=== PATIENT | female | born 1975 | race Caucasian/White ===

== ENCOUNTER 2022-07-21 21:47 | Emergency (ER) | payer SELFPAY ==
[~2022-07-21] VITALS: Ht 162.5 cm; Wt 86.8 kg
[2022-07-21] MEDS ORDERED: KETOROLAC 15 MG/ML VIAL IVP STA (22:14)
[2022-07-21] MEDS ORDERED: NS IV 1000 ML 1,000 ML IV STA (22:14)
[2022-07-21 22:21] LABS: BASOPHILS % (AUTO) 0 % (0-10); EOSINOPHILS # (AUTO) 0.1 10^3/uL (0.0-0.3); EOSINOPHILS % (AUTO) 2 % (0-10); HEMATOCRIT 31 % (35-52); LYMPHOCYTES % (AUTO) 13 % (12-44); MEAN CORPUSCULAR HEMOGLOBIN 26 pg (25-34); MEAN CORPUSCULAR HGB CONC 32 g/dL (32-36); MEAN CORPUSCULAR VOLUME 81 fL (80-99); MONOCYTES # (AUTO) 0.3 10^3/uL (0.0-1.0); MONOCYTES % (AUTO) 5 % (0-12); NEUTROPHILS # (AUTO) 5.7 10^3/uL (1.8-7.8); NEUTROPHILS % (AUTO) 80 % (42-75); PLATELET COUNT 270 10^3/uL (130-400); WHITE BLOOD COUNT 7.1 10^3/uL (4.3-11.0)
--- NOTE | 2022-07-21 22:29 | ED GU-Female ---
General Chief Complaint: - Reproductive Stated Complaint: ABNORMAL VAG BLEEDING,DIARRHEA,DIZZY Source: patient History of Present Illness Date Seen by Provider: Jul 21, 2022 Time Seen by Provider: 21:51 Initial Comments 47-year-old female presenting with complaints of dizziness and abnormal vaginal bleeding. She states that she had 3 months where she did not have a menstrual period at all. And starting July 04 she has had heavy vaginal bleeding that has persisted for 2 weeks. She has an appointment to see Dr. Goins at the [facility] clinic on August 03 but was concerned about the dizziness so she came in to be seen today. She denies any syncope or loss of consciousness. She has been having large clots that she is passing and going through several pads and/or tampons in a day. She does note that her mother went through menopause in her 40s and had heavy bleeding similar to this that required an ablation and then a hysterectomy. She has increased pelvic cramping that was not improved with Midol, Aleve, ibuprofen. Timing/Duration: constant (over 2 weeks of heavy bleeding) Severity/Quality: moderate, cramping Location: suprapubic Radiation: none Activities at Onset: none Prior Genitourinary Problems: none Sexual [place] History: less than 2 months ago, single partner Associated Symptoms: No diaphoresis, No dysuria, No fever/chills, No loss of bladder control, No lower back pain, No lumps, No mass, No nausea/vomiting, No nocturia, No polyuria, No swelling, No syncope, No urinary frequency Allergies and Home Medications Allergies Coded Allergies: No Known Drug Allergies (Unverified , 07/21/22) Patient Home Medication List Home Medication List Reviewed: Yes Medroxyprogesterone Acetate (Provera) 10 Mg Tablet, 10 MG PO DAILY Prescribed by: JAMILA HAJI on 07/21/22 9232 Review of Systems Review of Systems Constitutional: No chills; dizziness (with standing and walking sometimes); No fever EENTM: no symptoms reported Respiratory: no symptoms reported Cardiovascular: no symptoms reported Gastrointestinal: see HPI Genitourinary: see HPI : No LMP: Jul 04, 2022 Musculoskeletal: no symptoms reported Skin: no symptoms reported Psychiatric/Neurological: Anxiety Past Fgconsq-Kzwsae-Tlnhaw Hx Patient Social History Tobacco Use?: No Use of E-Cig and/or Vaping dev: No Substance use?: No Alcohol Use?: No Physical Exam Vital Signs Capillary Refill : Height, Weight, BMI Height: '" Weight: lbs. oz. 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 II-XII nml as tested, alert, oriented x 3 Skin: normal color, warm/dry Progress/Results/Core Measures Suspected Sepsis SIRS Temperature: Pulse: Respiratory Rate: Laboratory Tests 07/21/22 22:17: White Blood Count 7.1 Blood Pressure / Mean: Laboratory Tests 07/21/22 22:17: Platelet Count 270 Results/Orders Lab Results Laboratory Tests Test 07/21/22 22:17 07/21/22 22:18 Range/Units White Blood Count 7.1 4.3-11.0 10^3/uL Red Blood Count 3.81 3.80-5.11 10^6/uL Hemoglobin 10.0 L 11.5-16.0 g/dL Hematocrit 31 L 35-52 % Mean Corpuscular Volume 81 80-99 fL Mean Corpuscular Hemoglobin 26 25-34 pg Mean Corpuscular Hemoglobin Concent 32 32-36 g/dL Red Cell Distribution Width 15.4 H 10.0-14.5 % Platelet Count 270 130-400 10^3/uL Mean Platelet Volume 10.0 9.0-12.2 fL Immature Granulocyte % (Auto) 0 % Neutrophils (%) (Auto) 80 H 42-75 % Lymphocytes (%) (Auto) 13 12-44 % Monocytes (%) (Auto) 5 0-12 % Eosinophils (%) (Auto) 2 0-10 % Basophils (%) (Auto) 0 0-10 % Neutrophils # (Auto) 5.7 1.8-7.8 10^3/uL Lymphocytes # (Auto) 1.0 1.0-4.0 10^3/uL Monocytes # (Auto) 0.3 0.0-1.0 10^3/uL Eosinophils # (Auto) 0.1 0.0-0.3 10^3/uL Basophils # (Auto) 0.0 0.0-0.1 10^3/uL Immature Granulocyte # (Auto) 0.0 0.0-0.1 10^3/uL My Orders Orders - JAMILA HAJI MD Comprehensive Metabolic Panel (07/21/22 22:14) Ua Culture If Indicated (07/21/22 22:14) Ed Iv/Invasive Line Start (07/21/22 22:14) Cbc With Automated Diff (07/21/22 22:14) Ct Abdomen/Pelvis W (07/21/22 22:14) Protime With Inr (07/21/22 22:14) Partial Thromboplastin Time (07/21/22 22:14) Hcg,Quantitative (07/21/22 22:14) Ns Iv 1000 Ml (Sodium Chloride 0.9%) (07/21/22 22:14) Ketorolac Injection (Toradol Injection) (07/21/22 22:14) Vital Signs/I&O Capillary Refill : Progress Note #1: Progress Note Potential life-threatening conditions of ectopic , uterine mass, ovarian cancer, uterine cancer, uterine fibroids, coagulopathy. Obtain IV access and check complete blood count, comprehensive metabolic profile, clotting factors, quantitative beta-hCG. Order urinalysis to look for signs of infection. CT scan of the abdomen and pelvis looking for uterine or ovarian mass or tumor that might be causing her to have the heavy bleeding. Administer normal saline 1 L IV fluid bolus for feeling dizzy and lightheaded with standing and moving. Toradol 30 mg IV to help with pelvic cramping pain. Progress Note #2: Progress Note Her complete blood count shows normal white blood cell count of 7.1. She does have some mild anemia with a hemoglobin of 10 but I do not have any prior labs to compare with and she does not know what her hemoglobin usually runs. CMP did not show any acute electrolyte imbalance to contribute to her heavy bleeding and pelvic cramping. CT scan on my personal interpretation and review showed slightly enlarged uterus but no definite mass or tumor. No significant lymphadenopathy in the pelvis. Quantitative hCG is less than 5. This would be equivalent to 0 and goes with he r not having an ectopic or tubal . Progress Note #3: Progress Note I have reviewed the radiologist report at 2347. Radi[address] Anthony Pino MD had read her CT scan of the abdomen pelvis with IV contrast showing uterus and adnexa demonstrate no significant abnormality. No definite endometrial fluid. Detailed evaluation of the uterus and adnexa somewhat limited. No definite evidence for significant thickening of the endometrial stripe. Probable follicular changes involving the right adnexa/ovary as detailed above. The clinical significance of this finding is indeterminate and this is presumed incidental. No free intrapelvic fluid. Advised patient of the findings and results. She does state that she feels better after getting the IV fluids here in the ED and is not as dizzy when she gets up to walk. She has been walking back and forth to the bathroom without difficulty. She was counseled on follow-up with gynecology and primary care. Given the phone number for Dr. HOOD with gynecology. Encouraged patient to call tomorrow during the day to check with the clinics about possible outpatient ultrasound or having her be seen sooner than August 03. Prescription for Provera 10 mg p.o. daily x10 days. This would be to help with stabilizing her lining of the uterus to slow and then stop the heavy vaginal bleeding. Stressed importance of follow-up with the clinic for additional testing and evaluation beyond what is available in the stand-alone ED here in [place]. Diagnostic Imaging Diagonstic Imaging: CT Plain Films/CT/US/NM/MRI: abdomen, pelvis Comments I have reviewed the radiologist report at 2347. Rad[address] Anthony Pino MD had read her CT scan of the abdomen pelvis with IV contrast showing uterus and adnexa demonstrate no significant abnormality. No definite endometrial fluid. Detailed evaluation of the uterus and adnexa somewhat limited. No definite evidence for significant thickening of the endometrial stripe. Probable follicular changes involving the right adnexa/ovary as detailed above. The clinical significance of this finding is indeterminate and this is presumed incidental. No free intrapelvic fluid. Reviewed: [facility] Reviewed by Me Departure Impression Primary Impression: Menorrhagia Qualified Codes: N92.1 - Excessive and frequent menstruation with irregular cycle Additional Impression: Anemia Qualified Codes: D64.9 - Anemia, unspecified Disposition: 01 HOME, SELF-CARE Condition: Improved Departure-Patient Inst. Decision time for Depature: 23:51 Referrals: DARIO HOOD DO [facility] Patient Instructions: Heavy Periods ED, Anemia, Possibly From Low Iron, Adult ED Add. Discharge Instructions: I encourage you to restart your vitamins with iron to help with anemia and your recent blood loss. Take the Provera medication every day for the next 10 days to help with getting the bleeding stopped. Call the gynecology office for Dr. HOOD about follow-up as well as you could check with Dr. Goins. Either of them they want to see you sooner than 2 weeks as well as they may be able to order an outpatient pelvic ultrasound to further evaluate your heavy bleeding. May continue with aspi-awc-yhxbtva acetaminophen, naproxen or Aleve, ibuprofen or Advil and Motrin to try and help with pain. All discharge instructions reviewed with patient and/or family. Voiced understfabian garcia. Scripts Medroxyprogesterone Acetate (Provera) 10 Mg Tablet 10 MG PO DAILY for Heavy Bleeding for 10 Days, #10 TAB 0 Refills Prov: JAMILA HAJI MD 07/21/22 JAMILA HAJI MD Jul 21, 2022 22:29
[2022-07-21] MEDS ORDERED: MEDR10TA PO (23:17)
[2022-07-22 00:10] VITALS: BP 144/71
[2022-07-22] MEDS ORDERED: MEDR10TA PO (02:34)
[2022-07-22 04:23] LABS: SODIUM 135 MMOL/L (135-145)
[2022-07-22 04:24] LABS: ALANINE AMINOTRANSFERASE 19 U/L (0-55); ALKALINE PHOSPHATASE 87 U/L (40-136); BILIRUBIN,TOTAL 0.4 MG/DL (0.1-1.0); BUN/CREATININE RATIO 20; CALCIUM 8.7 MG/DL (8.5-10.1); CARBON DIOXIDE 23 MMOL/L (21-32); CHLORIDE 98 MMOL/L (98-107); CREATININE SERUM 0.66 MG/DL (0.60-1.30); GFR ESTIMATED 108; GLUCOSE 103 MG/DL (70-105); POTASSIUM 3.7 MMOL/L (3.6-5.0); TOTAL PROTEIN 7.5 GM/DL (6.4-8.2)
[2022-07-22 04:25] LABS: ALBUMIN 4.6 GM/DL (3.2-4.5)
[2022-07-22 04:29] LABS: INR 0.9 (0.8-1.4); PROTHROMBIN TIME PATIENT 12.9 SEC (12.2-14.7)
[2022-07-22] MEDS ORDERED: IOHEXOL 350 MG/ML 100 ML (OMNIPAQUE 350) VIAL IV ONE (06:45)
[2022-07-22] MEDS ORDERED: HOLD METFORMIN - RECEIVED CONTRAST 20 ML VIAL IV SCH (06:45)
[2022-07-22] MEDS ORDERED: NS 100 ML (IVPB) BAG IV ONE (06:45)
[2022-07-22] MEDS ORDERED: CATHETER FLUSH 10 ML SYR IV PRN (06:45)
--- NOTE | 2022-07-22 08:44 | Diagnostic Imaging Report ---
PROCEDURE: CT abdomen and pelvis with contrast. TECHNIQUE: Multiple contiguous axial images were obtained through the abdomen and pelvis after administration of intravenous contrast. Auto Exposure Controls were utilized during the CT exam to meet ALARA standards for radiation dose reduction. All CT scans use one or more of the following dose optimizing techniques: automated exposure control, MA and/or KvP adjustment based on patient size and exam type or iterative reconstruction. INDICATION: Heavy vaginal bleeding 2 weeks duration with pelvic cramping, now with new onset diarrhea. I have no priors. FINDINGS: The unobstructed colon appeared unremarkable. No large or small bowel wall thickening. No pericolonic or perienteric edema. No bowel obstruction. No fecal impaction. No contrast extravasation. There is no intra or extraperitoneal hemorrhage. There is some mild stranding and increased density of the fat along the mesenteric root with few subcentimeter mesenteric nodes. No dominant or suspiciously enlarged lymph node or mass. There is a fatty supraumbilical ventral hernia noninflamed. No herniation of viscus. There is a normal appendix. There is no diverticulitis. There is a nonobstructing 3 mm stone within the left renal lower pole calyx. There are few bilateral simple renal cortical cysts. The spleen, adrenals, pancreas unremarkable. The gallbladder surgically absent. No opaque biliary calculus or ductal dilatation. The uterus and adnexa appeared unremarkable. There is no pelvic or abdominal free fluid. There is no abscess, hematoma or acute fluid collection. There is no pneumatosis or free gas. The lung bases and the bony structures were nonacute. IMPRESSION: 1. Nonobstructing renal calculus, benign renal cyst. Normal appendix with no acute adnexal abnormality. 2. Some hazy very mild stranding and increased density of the fat along the mesenteric root with few small shotty nonenlarged lymph nodes may reflect mild mesenteric adenitis. No bowel, biliary or urinary tract obstruction. 3. Fatty supraumbilical ventral abdominal wall hernias noninflamed. Dictated by: Dictated on workstation # [id number]
== END 2022-07-22 00:10 | disposition home or self-care (01) ==
LOC: ER FS 21:49
DX: N92.0 Excessive and frequent menstruation with regular cycle (principal); D64.9 Anemia, unspecified; Z28.310 Unvaccinated for COVID-19
CPT/HCPCS: 36415; 74177; 80053; 84702; 85025; 85610; 85730; Q9967